=== PATIENT | female | born 2000 | race Caucasian/White ===

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

== ENCOUNTER 2019-08-16 12:17 | Emergency (ER) | payer OTHER ==
[~2019-08-16] VITALS: Ht 170.2 cm; Wt 62.0 kg
--- NOTE | 2019-08-16 12:26 | NUR ---
THIS IS A 19 YO FEMALE BIB [facility] DUE TO HEROIN OVERDOSE. PATIENT STATES "I DID HEROIN ONE TIME LAST NIGHT, AND TOOK ONE PERCOCET TODAY". PATIENT'S FAMILY SAW HER AROUND 1000 AWAKE AND ALERT, FOUND PATIENT ON THE GROUND AT 1120. [facility] STATES RR WAS 4, ADMINISTERED 0.5 OF NARCAN IN THE FILED, PATIENT AWOKE IMMEDIATELY. BLOOD SUGAR IN FILED WAS 178. PATIENT STATES "I WASN'T TRYING TO KILL MYSELF", DENIES SI/HI, DOES STATE "I DO HAVE SOME DEPRESSION". PATIENT PLACED ON SOCIAL MEDIA JOB TITLES, SINUS TACHYCARDIA PRESENT, CONTINUOUS SPO2 AT 100% ON RA, CYCLE BP Q1HR. NEEDS ADDRESSED. CALL LIGHT IN REACH.
--- NOTE | 2019-08-16 12:41 | NUR ---
BREAK RN FOR PRIMARY RN'S EDWIN. DR. CHAPMAN AT BEDSIDE FOR EVALUATION. PT A&OX4, SITTING UP IN BED SPEAKING IN FULL SENTENCES WITH MD. VILLAGOMEZ. ST ON MONITOR. RESP REGULAR AND UNLABORED AT THIS TIME. PULSE OX 100% RA. PT TEARFUL WHILE SPEAKING WITH MD. MOTHER AND FRIEND AT BEDSIDE. AWAITING ORDERS. CALL LIGHT IN REACH. FALL PRECUATIONS IN PLACE. SIDE RAILS UPX2.
--- NOTE | 2019-08-16 12:43 | NUR ---
TP RN: call placed to the CEMENTER MACHINE APPLICATOR cell phone requesting psych consult for this pt.
--- NOTE | 2019-08-16 13:10 | NUR ---
REPORT AND CARE BACK TO PRIMARY RN'S EDWIN
--- NOTE | 2019-08-16 13:41 | NUR ---
PATIENT RESTING ON GURNEY, APPEARS TEARY AND CRYING, FAMILY IN ROOM, NEEDS ADDRESSED.
--- NOTE | 2019-08-16 14:33 | NUR ---
TP RN: Placing telepsych consult as the psych RADIO TOWER TECHNICIAN has not responded to our request for a psych eval on this pt.
--- NOTE | 2019-08-16 14:34 | NUR ---
PATIENT THREW UP ONCE. CURRENTLY STATES SHE DOES NOT FEEL NAUSEAOUS.
--- NOTE | 2019-08-16 15:09 | NUR ---
SPOKE TO THROUGHPUT, WAITING FOR PT TO GET FULLY REGISTERED AND FOR MD TO PUT IN TELEPSYCH ORDER, TO CONTACT.
--- NOTE | 2019-08-16 15:21 | NUR ---
TP RN: telepsych consult placed now
--- NOTE | 2019-08-16 15:44 | NUR ---
PT AMBULATED TO BATHROOM, GAIT STEADY
--- NOTE | 2019-08-16 15:53 | NUR ---
PT BACK IN BED, ON INVENTORY AUDIT CLERK NORMAL SINUS RHYTHM, CONTINUOUS SPO2 AT 94%, CYCLE BP Q1HR. NEEDS ADDRESSED.
--- NOTE | 2019-08-16 15:56 | NUR ---
TELEPSYCH CALLED TO ASK TO SET UP CART IN ROOM
--- NOTE | 2019-08-16 16:50 | NUR ---
TELEPSYCH IN PROGRESS
[2019-08-16 17:21] VITALS: BP 135/79
--- NOTE | 2019-08-16 17:22 | NUR ---
TELEPSYCH DONE. PATIENT STATES "THAT WENT REALLY WELL". PLAN OF CARE TO BE DISCUSSED WITH MD.
[2019-08-16] MEDS ORDERED: VENLAFAXINE 37.5MG TABLET PO ONE (17:30)
== END 2019-08-16 17:59 | disposition home or self-care (01) ==
LOC: ED 14:46
DX: T40.2X1A Poisoning by other opioids, accidental (unintentional), initial encounter (principal); F33.9 Major depressive disorder, recurrent, unspecified; F11.129 Opioid abuse with intoxication, unspecified; R00.0 Tachycardia, unspecified; Y90.9 Presence of alcohol in blood, level not specified
CPT/HCPCS: 99283